=== PATIENT | female | born 2000 | race African-American/Black ===

== ENCOUNTER 2021-01-25 15:47 | Inpatient (IN) | payer MEDICAID ==
[~2021-01-25] VITALS: Ht 167.6 cm; Wt 110.2 kg
[2021-01-25] MEDS ORDERED: DOCO200C5 MT (16:10)
[2021-01-25] MEDS ORDERED: DIPH25TA23 PO (16:10)
[2021-01-25 17:18] LABS: CLARITY URINE CLOUDY (CLEAR); COLOR URINE YELLOW (YELLOW); KETONES URINE NEGATIVE (NEGATIVE); LEUKOCYTE ESTERASE URINE 3+ (NEGATIVE); NITRITE URINE NEGATIVE (NEGATIVE); OCCULT BLOOD URINE NEGATIVE (NEGATIVE); PH URINE 6.5 (4.5-8.0); PROTEIN URINE TRACE (NEGATIVE); SPECIFIC GRAVITY URINE 1.024 (1.005-1.030); UROBILINOGEN URINE 0.2 E.U./dL (0.2-1.0)
[2021-01-25 17:19] LABS: BASOPHILS % 0.2 % (0.0-2.0); EOSINOPHILS % 4.8 % (0.0-5.0); HEMATOCRIT. 32.9 % (36.0-48.0); LYMPHOCYTES % 15.6 % (20.0-50.0); MEAN CORPUSCULAR HEMOGLOBIN 27.5 pg (28.0-32.0); MEAN CORPUSCULAR VOLUME 82.1 fL (81.0-99.0); MEAN PLATELET VOLUME 8.7 fl (7.4-10.4); MONOCYTES % 7.3 % (2.0-8.0); NEUTROPHILS % 72.1 % (40.0-76.0); PLATELET 190 x1000/uL (130-400); RED BLOOD CELL COUNT 4.01 mill/uL (4.2-5.4); RED CELL DISTRIBUTION WIDTH 15.2 % (11.6-14.6)
[2021-01-25 17:28] LABS: PROTHROMBIN TIME 10.3 sec (9.6-11.0)
[2021-01-25 17:59] LABS: HEPATITIS B SURFACE ANTIGEN NEGATIVE
[2021-01-25] MEDS ORDERED: METHYLERGONOVINE MALEATE 0.2 MG/ML IM PRN (18:00)
[2021-01-25] MEDS ORDERED: MISOPROSTOL 100MCG TABLET VG PRN (18:00)
[2021-01-25] MEDS ORDERED: AMPICILLIN 2GM in NS 100ML 100 ML IV SCH (18:00)
[2021-01-25] MEDS ORDERED: DEXT 5%/LACTATED RINGERS 1,000 ML IV PRN (18:00)
[2021-01-25] MEDS ORDERED: LIDOCAINE HCL 1% 20ML VIAL (Pyxis) INJ INFIL SCH (18:00)
[2021-01-25] MEDS ORDERED: CARBOPROST TROMETHAMINE 250 MCG/ML AMPUL IM PRN (18:00)
[2021-01-25] MEDS ORDERED: DEXT 5%/LR + PITOCIN 20UNITS/L 1,000 ML IV PRN (18:00)
[2021-01-25] MEDS ORDERED: NALOXONE HCL 0.4 MG/ML 1ML VIAL IM PRN (18:00)
[2021-01-25] MEDS: LACTATED RINGERS 1,000 ML IV SCH ×2 (18:09→18:10)
[2021-01-25] MEDS: MISOPROSTOL 100MCG TABLET VG PRN ×2 (18:10→22:58)
[2021-01-25] MEDS ORDERED: ROPIVACAINE HCL/PF EPIDURAL 200 ML EPI SCH (18:30)
[2021-01-25 20:42] LABS: CHLORIDE 110 mEq/L (98-107)
[2021-01-25 20:55] LABS: *AMPHETAMINES SCREEN URINE NEGATIVE (NEGATIVE); *BARBITURATES SCREEN URINE NEGATIVE (NEGATIVE); *BENZODIAZEPINES SCREEN URINE NEGATIVE (NEGATIVE); CANNABINOID URINE SCREEN NEGATIVE (NEGATIVE); OPIATES URINE SCREEN NEGATIVE (NEGATIVE); PHENCYCLIDINE URINE SCREEN NEGATIVE (NEGATIVE)
[2021-01-25 20:56] LABS: *COCAINE SCREEN URINE NEGATIVE (NEGATIVE); METHADONE URINE SCREEN NEGATIVE (NEGATIVE)
[2021-01-25] MEDS: DIPHENHYDRAMINE 25MG CAPSULE PO PRN (21:48)
[2021-01-25] MEDS: CALAMINE LOTION 120ML TOP SCH (21:49)
[2021-01-25] MEDS: BUTORPHANOL TARTRATE 2 MG/ML VIAL IV PRN (23:10)
[2021-01-26] MEDS: AMPICILLIN 1,000 MG in SODIUM CHLORIDE 0.9% 50 ML IV SCH ×4 (01:11→18:23)
[2021-01-26] MEDS: BUTORPHANOL TARTRATE 2 MG/ML VIAL IV PRN (02:10)
[2021-01-26] MEDS: DIPHENHYDRAMINE 25MG CAPSULE PO PRN ×2 (03:01→15:31)
[2021-01-26] MEDS: MISOPROSTOL 100MCG TABLET VG PRN ×2 (03:03→06:39)
[2021-01-26] MEDS: CALAMINE LOTION 120ML TOP SCH ×3 (03:08→09:51)
[2021-01-26] MEDS: LACTATED RINGERS 1,000 ML IV SCH ×2 (04:43→13:06)
[2021-01-26] MEDS ORDERED: FENTANYL CITRATE/PF 50MCG/ML 2ML VIAL ONE (12:00)
[2021-01-26] MEDS ORDERED: ROPIVACAINE HCL 2MG/ML (0.2%) 200ML BOTTLE IR ONE (12:00)
[2021-01-26] MEDS ORDERED: BUPIVACAINE HCL/PF 0.25% (2.5MG/ML) 10ML ONE (12:01)
[2021-01-26] MEDS ORDERED: SODIUM CHLORIDE 0.9% 10ML VIAL ONE (12:02)
[2021-01-26] MEDS ORDERED: EPHEDRINE SULFATE 50MG/ML VIAL ONE (12:03)
[2021-01-26] MEDS ORDERED: ROPIVACAINE HCL/PF EPIDURAL 200 ML EPI SCH (12:15)
[2021-01-26] MEDS ORDERED: HEMORRHOIDAL SUPP PR PRN (20:45)
[2021-01-26] MEDS ORDERED: DEXT 5%/LR + PITOCIN 20UNITS/L 1,000 ML IV SCH (20:45)
[2021-01-26] MEDS ORDERED: BISACODYL 10MG SUPP PR PRN (20:45)
[2021-01-26] MEDS ORDERED: DIPHENHYDRAMINE 25MG CAPSULE PO PRN (20:45)
[2021-01-26] MEDS ORDERED: GLYCERIN/WITCH HAZEL LEAF MEDICATED PAD TOP PRN (20:45)
[2021-01-26] MEDS ORDERED: BENZOCAINE/LANOLIN/ALOE VERA SPRAY TOP PRN (20:45)
[2021-01-26] MEDS ORDERED: IBUPROFEN 400MG TABLET PO PRN (20:45)
[2021-01-26] MEDS ORDERED: LANOLIN OINT 7GM TUBE TOP PRN (20:45)
[2021-01-26] MEDS ORDERED: MAGNESIUM/ALUMINUM HYDROXIDE/SIMETHICONE 30ML UDC PO SCH (21:00)
[2021-01-26] MEDS ORDERED: DOCUSATE SODIUM 100MG CAPSULE PO SCH (21:00)
[2021-01-27 00:15] VITALS: BP 110/65
[2021-01-27] MEDS: IBUPROFEN 800MG TABLET PO PRN ×3 (00:26→20:57)
[2021-01-27] MEDS: AMPICILLIN 1,000 MG in SODIUM CHLORIDE 0.9% 50 ML IV SCH ×2 (01:03→06:52)
[2021-01-27 04:00] VITALS: BP 110/58
[2021-01-27] MEDS: CALAMINE LOTION 120ML TOP SCH (06:44)
[2021-01-27 07:06] LABS: BASOPHILS % 0.1 % (0.0-2.0); EOSINOPHILS % 2.8 % (0.0-5.0); HEMATOCRIT. 30.4 % (36.0-48.0); LYMPHOCYTES % 12.4 % (20.0-50.0); MEAN CORPUSCULAR HEMOGLOBIN 27.1 pg (28.0-32.0); MEAN CORPUSCULAR VOLUME 82.6 fL (81.0-99.0); MONOCYTES % 6.9 % (2.0-8.0); NEUTROPHILS % 77.8 % (40.0-76.0); PLATELET 151 x1000/uL (130-400); RED BLOOD CELL COUNT 3.68 mill/uL (4.2-5.4); RED CELL DISTRIBUTION WIDTH 15.6 % (11.6-14.6)
[2021-01-27 07:23] LABS: CHLORIDE 111 mEq/L (98-107)
[2021-01-27] MEDS ORDERED: FERROUS SULFATE 325MG TABLET PO SCH (07:30)
[2021-01-27 08:00] VITALS: BP 103/65
[2021-01-27] MEDS ORDERED: PRENATAL VIT/FE FUMARATE/FA TABLET PO SCH (09:00)
[2021-01-27] MEDS: SIMETHICONE 80MG TABLET CHEW PO SCH ×2 (10:59→20:57)
[2021-01-27 16:40] VITALS: BP 109/71
[2021-01-27] MEDS ORDERED: RHO(D) IMMUNE GLOBULIN 300 MCG/SYR IM ONE (18:15)
[2021-01-27 20:00] VITALS: BP 120/71
[2021-01-27] MEDS ORDERED: ACETAMINOPHEN WITH CODEINE 300/30MG TABLET PO PRN (20:45)
[2021-01-28 03:30] VITALS: BP 108/62
[2021-01-28] MEDS: IBUPROFEN 800MG TABLET PO PRN (03:39)
[2021-01-28] MEDS ORDERED: IBUP-2030 PO (03:56)
[2021-01-28] MEDS ORDERED: FERR325T23 PO (03:56)
[2021-01-28 08:00] VITALS: BP 114/63
== END 2021-01-28 13:45 | disposition home or self-care (01) | DRG 560 ==
LOC: 8 EST LDRP 15:47 → OBSVTOIN 15:47 → 8EST 01-26 22:45
PROVIDERS: ADMIT Obstetrics & Gynecology; ATTEND Obstetrics & Gynecology
PROC: 10E0XZZ Delivery of Products of Conception, External Approach (ICD-10-PCS; principal; 2021-01-26)
PROC: 3E0R3BZ Introduction of Anesthetic Agent into Spinal Canal, Percutaneous Approach (ICD-10-PCS; 2021-01-26)
PROC: 00HU33Z Insertion of Infusion Device into Spinal Canal, Percutaneous Approach (ICD-10-PCS; 2021-01-26)
PROC: 3E033VJ Introduction of Other Hormone into Peripheral Vein, Percutaneous Approach (ICD-10-PCS; 2021-01-26)
PROC: 3E0234Z Introduction of Serum, Toxoid and Vaccine into Muscle, Percutaneous Approach (ICD-10-PCS; 2021-01-27)
DX: O26.86 Pruritic urticarial papules and plaques of pregnancy (PUPPP) (principal); D64.9 Anemia, unspecified; O90.81 Anemia of the puerperium; L50.9 Urticaria, unspecified; Z37.0 Single live birth; Z67.41 Type O blood, Rh negative; Z3A.38 38 weeks gestation of pregnancy; Z23 Encounter for immunization
CPT/HCPCS: 36415; 76805; 76818; 80048; 80053; 80305; 81003; 85025; 86592; 86703; 86762; 86850; 86886; 86900; 87340; 90384; G0378; J0290; J0595; J2590; J2795; J3010; J3490; J7120; Q0163; A4315